=== PATIENT | female | born 1955 | race Two or more races ===

== ENCOUNTER → 2018-08-01 | Emergency (ER) | payer MEDICAID ==
[~2018-08-01] VITALS: Ht 154.9 cm; Wt 70.3 kg
[~2018-08-01] MED LIST: EPINEPHrine HCL 1 MG/10 ML SYRG IV ONE; InsuLIN REG 1unit/0.01ml Soln (100units/ml) IV ONE; InsuLIN REG 1unit/0.01ml Soln (100units/ml) ONE; SODIUM BICARBONATE 8.4 % INJ 50ML VIAL IV ONE; SODIUM BICARBONATE 8.4% INJ 50ML SYRINGE IV ONE
[2018-08-01 19:59] VITALS: BP 0/0
== END | disposition expired ==
LOC: EDBD 19:59 → ER 20:02
DX: I46.9 Cardiac arrest, cause unspecified (principal); E11.9 Type 2 diabetes mellitus without complications; K21.9 Gastro-esophageal reflux disease without esophagitis
CPT/HCPCS: 31500; 92950; 96374; 99285; J0171; J1815